=== PATIENT | male | born 1960 | race Caucasian/White ===

== ENCOUNTER 2016-09-03 18:10 | Inpatient (IN) | payer BC ==
[~2016-09-03] VITALS: Ht 172.7 cm; Wt 91.9 kg
[2016-09-08 15:18] VITALS: BP 130/80
[2016-09-08] MEDS ORDERED: LIPITOR40 MG GT (15:52)
[2016-09-08] MEDS ORDERED: CYANOCOBAL1000 MCG/2 IM (15:54)
[2016-09-08 23:57] VITALS: BP 140/84
[2016-09-09 04:57] VITALS: BP 132/72
[2016-09-09 07:42] LABS: HEMATOCRIT 37.7 % (38.0-50.0); MCHC 32.4 G/DL (30.0-36.0); MCV 86.7 FL (86-99); MEAN PLAT.VOLUME 12.4 uM^3 (9.0-12.4); PLATELET COUNT 136 K/uL (156-360); RBC DIS.WIDTH-CV 13.2 % (11.8-14.6); RBC DIS.WIDTH-SD 41.2 % (39-53); RED BLOOD COUNT 4.35 M/uL (4.00-5.50); WHITE BLOOD COUNT 11.9 K/uL (4.1-10.2)
[2016-09-09 08:03] LABS: ALKALINE PHOSPHATASE 46 IU/L (3-129); ANION GAP 8 MEQ/L (2-14); CHLORIDE 105 MEQ/L (99-109); GFR ESTIMATE (CALCULATED) > 59 mL/min/; GLUCOSE 112 mg/dL (70-99); POTASSIUM 3.6 MEQ/L (3.7-5.4); SAMPLE HEMOLYSIS CHECK 0; SAMPLE ICTERIC CHECK 0; SAMPLE LIPEMIA CHECK 0; SODIUM 142 MEQ/L (136-147); TOTAL BILIRUBIN 0.4 MG/DL (0.0-1.0); UREA NITROGEN (BUN) 19 mg/dL (9-23)
[2016-09-09 15:32] VITALS: BP 146/75
[2016-09-09 16:30] LABS: POINT-OF-CARE METER ID UU13113720
[2016-09-10 05:07] VITALS: BP 118/75
[2016-09-10 06:40] LABS: ANION GAP 9 MEQ/L (2-14); CHLORIDE 107 MEQ/L (99-109); GFR ESTIMATE (CALCULATED) > 59 mL/min/; GLUCOSE 123 mg/dL (70-99); SAMPLE HEMOLYSIS CHECK 0; SAMPLE ICTERIC CHECK 0; SAMPLE LIPEMIA CHECK 0; SODIUM 142 MEQ/L (136-147); UREA NITROGEN (BUN) 21 mg/dL (9-23)
[2016-09-10 07:06] LABS: MCH 28.4 PG (29.0-34.0); MCHC 32.2 G/DL (30.0-36.0); MCV 88.3 FL (86-99); MEAN PLAT.VOLUME 11.5 uM^3 (9.0-12.4); RBC DIS.WIDTH-CV 13.3 % (11.8-14.6); RBC DIS.WIDTH-SD 43.3 % (39-53); RED BLOOD COUNT 4.19 M/uL (4.00-5.50); WHITE BLOOD COUNT 8.3 K/uL (4.1-10.2)
[2016-09-10 07:10] LABS: PLATELET COUNT 250 K/uL (156-360)
[2016-09-10 15:26] VITALS: BP 129/76
[2016-09-10 16:16] LABS: POINT-OF-CARE METER ID UU13113712
[2016-09-11 05:07] VITALS: BP 126/73
[2016-09-11 08:00] LABS: POINT-OF-CARE METER ID UU13113712; POINT-OF-CARE USER ID AHSSSJB31
[2016-09-11 16:00] VITALS: BP 153/92
[2016-09-11 16:35] LABS: POINT-OF-CARE METER ID UU13113712
[2016-09-12 06:12] VITALS: BP 106/71
[2016-09-12 06:38] LABS: POINT-OF-CARE METER ID UU13113720; POINT-OF-CARE USER ID ENVGAF
[2016-09-12 15:30] VITALS: BP 128/79
[2016-09-12 16:24] LABS: POINT-OF-CARE METER ID UU13113712
[2016-09-13 05:37] VITALS: BP 105/59
[2016-09-13 06:28] LABS: POINT-OF-CARE METER ID UU13113712; POINT-OF-CARE USER ID ENVGAF
[2016-09-13 15:09] VITALS: BP 128/77
[2016-09-13 16:31] LABS: POINT-OF-CARE METER ID UU13113720
[2016-09-14 04:22] VITALS: BP 117/70
[2016-09-14 07:22] LABS: POINT-OF-CARE METER ID UU13113712; POINT-OF-CARE USER ID AHSSSJB31
[2016-09-14 16:07] VITALS: BP 109/69
[2016-09-14 16:48] LABS: POINT-OF-CARE METER ID UU13113712
[2016-09-15 04:15] VITALS: BP 132/80
[2016-09-15 05:48] LABS: HEMATOCRIT 40.9 % (38.0-50.0); MCH 29.1 PG (29.0-34.0); MCV 88.1 FL (86-99); MEAN PLAT.VOLUME 11.4 uM^3 (9.0-12.4); PLATELET COUNT 305 K/uL (156-360); RBC DIS.WIDTH-CV 13.3 % (11.8-14.6); RBC DIS.WIDTH-SD 42.8 % (39-53); RED BLOOD COUNT 4.64 M/uL (4.00-5.50); WHITE BLOOD COUNT 8.4 K/uL (4.1-10.2)
[2016-09-15 06:56] LABS: ALKALINE PHOSPHATASE 68 IU/L (3-129); ANION GAP 11 MEQ/L (2-14); CHLORIDE 104 MEQ/L (99-109); GFR ESTIMATE (CALCULATED) > 59 mL/min/; GLUCOSE 104 mg/dL (70-99); POTASSIUM 4.7 MEQ/L (3.7-5.4); SAMPLE HEMOLYSIS CHECK 0; SAMPLE ICTERIC CHECK 0; SAMPLE LIPEMIA CHECK 0; SODIUM 141 MEQ/L (136-147); TOTAL BILIRUBIN 0.4 MG/DL (0.0-1.0)
[2016-09-15 06:57] LABS: UREA NITROGEN (BUN) 32 mg/dL (9-23)
[2016-09-15 07:08] LABS: POINT-OF-CARE METER ID UU13113712; POINT-OF-CARE USER ID AHSSSJB31
[2016-09-15 15:18] VITALS: BP 123/78
[2016-09-15 17:09] LABS: POINT-OF-CARE METER ID UU13113712
[2016-09-15 21:45] LABS: POINT-OF-CARE METER ID UU13113712
[2016-09-16 06:37] LABS: POINT-OF-CARE METER ID UU13113720; POINT-OF-CARE USER ID ENVGAF
[2016-09-16 16:50] LABS: POINT-OF-CARE METER ID UU13113720
[2016-09-16 16:53] VITALS: BP 128/80
[2016-09-17 04:47] VITALS: BP 132/82
[2016-09-17 06:27] LABS: POINT-OF-CARE METER ID UU13113720; POINT-OF-CARE USER ID ENVGAF
[2016-09-17 15:23] VITALS: BP 123/75
[2016-09-17 15:26] VITALS: BP 123/75
[2016-09-17 15:46] LABS: POINT-OF-CARE METER ID UU13113720
[2016-09-18 05:36] VITALS: BP 114/76
[2016-09-18 06:48] LABS: POINT-OF-CARE METER ID UU13113720; POINT-OF-CARE USER ID AHSSSJB31
[2016-09-18 15:41] VITALS: BP 110/69
[2016-09-18 17:01] LABS: POINT-OF-CARE METER ID UU13113712
[2016-09-19 04:09] VITALS: BP 98/64
[2016-09-19 06:48] LABS: POINT-OF-CARE METER ID UU13113720; POINT-OF-CARE USER ID AHSSSJB31
[2016-09-19 16:23] VITALS: BP 128/91
[2016-09-19 16:47] LABS: POINT-OF-CARE METER ID UU13113712
[2016-09-20 05:37] VITALS: BP 120/79
[2016-09-20 07:57] LABS: POINT-OF-CARE METER ID UU13113720; POINT-OF-CARE USER ID AHSSSJB31
[2016-09-20 12:32] LABS: BASOPHIL COUNT 0.1 K/uL (0-0.1); EOSINOPHIL (%) 4.4 % (0-5); EOSINOPHIL COUNT 0.4 K/uL (0-0.3); HEMATOCRIT 44.3 % (38.0-50.0); IMMATURE GRANULOCYTE (%) 1.4 % (0.0-0.7); IMMATURE GRANULOCYTE COUNT 0.1 K/uL; INSTRUMENT ABS NEUTROPHIL CT 6.1 K/uL; LYMPHOCYTE COUNT 0.8 K/uL (1.0-2.8); MCH 28.2 PG (29.0-34.0); MCHC 32.1 G/DL (30.0-36.0); MCV 87.9 FL (86-99); MEAN PLAT.VOLUME 11.4 uM^3 (9.0-12.4); MONOCYTE (%) 6.7 % (3-12); MONOCYTE COUNT 0.5 K/uL (0-0.8); NEUTROPHIL (%) 77.3 % (45-76); NEUTROPHIL COUNT 6.1 K/uL (1.8-6.4); PLATELET COUNT 286 K/uL (156-360); RBC DIS.WIDTH-CV 13.2 % (11.8-14.6); RBC DIS.WIDTH-SD 43.2 % (39-53); RED BLOOD COUNT 5.04 M/uL (4.00-5.50); WHITE BLOOD COUNT 7.9 K/uL (4.1-10.2)
[2016-09-20 12:47] LABS: ALKALINE PHOSPHATASE 89 IU/L (3-129); ANION GAP 7 MEQ/L (2-14); CHLORIDE 104 MEQ/L (99-109); GFR ESTIMATE (CALCULATED) 56 mL/min/; GLUCOSE 107 mg/dL (70-99); POTASSIUM 5.1 MEQ/L (3.7-5.4); SAMPLE HEMOLYSIS CHECK 0; SAMPLE ICTERIC CHECK 0; SAMPLE LIPEMIA CHECK 0; SODIUM 141 MEQ/L (136-147); UREA NITROGEN (BUN) 26 mg/dL (9-23)
[2016-09-20 12:58] LABS: TOTAL BILIRUBIN 0.5 MG/DL (0.0-1.0)
[2016-09-20 15:37] VITALS: BP 125/83
[2016-09-20 16:20] LABS: POINT-OF-CARE METER ID UU13113712
[2016-09-20 20:28] LABS: POINT-OF-CARE METER ID UU13113712
[2016-09-21 05:16] VITALS: BP 127/83
[2016-09-21 06:37] LABS: POINT-OF-CARE METER ID UU13113712; POINT-OF-CARE USER ID ENVGAF
[2016-09-21 15:19] VITALS: BP 123/86
[2016-09-21 16:22] LABS: POINT-OF-CARE METER ID UU13113712; POINT-OF-CARE USER ID ENVGAF
[2016-09-22 05:29] VITALS: BP 129/74
[2016-09-22 06:36] LABS: POINT-OF-CARE METER ID UU13113720; POINT-OF-CARE USER ID ENVGAF
[2016-09-22 12:28] VITALS: BP 145/88
[2016-09-22 12:50] LABS: EOSINOPHIL (%) 3.6 % (0-5); EOSINOPHIL COUNT 0.4 K/uL (0-0.3); HEMATOCRIT 44.2 % (38.0-50.0); IMMATURE GRANULOCYTE (%) 0.6 % (0.0-0.7); IMMATURE GRANULOCYTE COUNT 0.1 K/uL; INSTRUMENT ABS NEUTROPHIL CT 8.6 K/uL; LYMPHOCYTE COUNT 0.8 K/uL (1.0-2.8); MCH 29.3 PG (29.0-34.0); MCV 88.8 FL (86-99); MEAN PLAT.VOLUME 11.3 uM^3 (9.0-12.4); MONOCYTE (%) 5.6 % (3-12); MONOCYTE COUNT 0.6 K/uL (0-0.8); NEUTROPHIL COUNT 8.6 K/uL (1.8-6.4); PLATELET COUNT 270 K/uL (156-360); RBC DIS.WIDTH-CV 13.3 % (11.8-14.6); RBC DIS.WIDTH-SD 43.1 % (39-53); RED BLOOD COUNT 4.98 M/uL (4.00-5.50); WHITE BLOOD COUNT 10.5 K/uL (4.1-10.2)
[2016-09-22 13:32] LABS: ALKALINE PHOSPHATASE 97 IU/L (3-129); ANION GAP 8 MEQ/L (2-14); CHLORIDE 106 MEQ/L (99-109); GFR ESTIMATE (CALCULATED) > 59 mL/min/; GLUCOSE 102 mg/dL (70-99); POTASSIUM 4.7 MEQ/L (3.7-5.4); SAMPLE HEMOLYSIS CHECK 0; SAMPLE ICTERIC CHECK 0; SAMPLE LIPEMIA CHECK 0; SODIUM 142 MEQ/L (136-147); TOTAL BILIRUBIN 0.5 MG/DL (0.0-1.0); UREA NITROGEN (BUN) 24 mg/dL (9-23)
[2016-09-22 15:40] VITALS: BP 165/102
[2016-09-22 16:13] LABS: POINT-OF-CARE METER ID UU13113720
[2016-09-22 21:46] LABS: POINT-OF-CARE METER ID UU13113720
[2016-09-23 05:20] VITALS: BP 138/75
[2016-09-23 07:28] LABS: POINT-OF-CARE METER ID UU13113720; POINT-OF-CARE USER ID AHSSSJB31
[2016-09-23 15:06] VITALS: BP 137/82
[2016-09-23 18:11] LABS: POINT-OF-CARE METER ID UU13113720
[2016-09-24 05:05] VITALS: BP 140/70
[2016-09-24 07:36] LABS: POINT-OF-CARE METER ID UU13113720
[2016-09-24 14:55] VITALS: BP 147/89
[2016-09-24 15:54] LABS: POINT-OF-CARE METER ID UU13113720
[2016-09-25 05:10] VITALS: BP 118/72
[2016-09-25 07:13] LABS: HEMATOCRIT 42.9 % (38.0-50.0); MCHC 31.9 G/DL (30.0-36.0); MCV 90.7 FL (86-99); MEAN PLAT.VOLUME 11.5 uM^3 (9.0-12.4); PLATELET COUNT 233 K/uL (156-360); RBC DIS.WIDTH-CV 13.3 % (11.8-14.6); RBC DIS.WIDTH-SD 44.7 % (39-53); RED BLOOD COUNT 4.73 M/uL (4.00-5.50); WHITE BLOOD COUNT 8.5 K/uL (4.1-10.2)
[2016-09-25 07:41] LABS: ALKALINE PHOSPHATASE 84 IU/L (3-129); ANION GAP 9 MEQ/L (2-14); CHLORIDE 105 MEQ/L (99-109); GFR ESTIMATE (CALCULATED) > 59 mL/min/; GLUCOSE 88 mg/dL (70-99); POTASSIUM 4.9 MEQ/L (3.7-5.4); SAMPLE HEMOLYSIS CHECK 1; SAMPLE ICTERIC CHECK 0; SAMPLE LIPEMIA CHECK 0; SODIUM 141 MEQ/L (136-147); TOTAL BILIRUBIN 0.5 MG/DL (0.0-1.0); UREA NITROGEN (BUN) 19 mg/dL (9-23)
[2016-09-25 07:51] LABS: POINT-OF-CARE METER ID UU13113720
[2016-09-25 15:53] VITALS: BP 141/78
[2016-09-25 16:56] LABS: POINT-OF-CARE METER ID UU13113720
[2016-09-26 06:05] VITALS: BP 127/77
[2016-09-26 06:45] LABS: POINT-OF-CARE METER ID UU13113712; POINT-OF-CARE USER ID ENVGAF
[2016-09-26 07:47] VITALS: BP 116/78
[2016-09-26 14:58] VITALS: BP 117/76
[2016-09-26 16:03] LABS: POINT-OF-CARE METER ID UU13113712
[2016-09-27 06:05] VITALS: BP 131/82
[2016-09-27 06:41] LABS: HEMATOCRIT 41.8 % (38.0-50.0); MCH 28.3 PG (29.0-34.0); MCHC 32.1 G/DL (30.0-36.0); MCV 88.4 FL (86-99); MEAN PLAT.VOLUME 11.9 uM^3 (9.0-12.4); PLATELET COUNT 200 K/uL (156-360); RBC DIS.WIDTH-CV 13.5 % (11.8-14.6); RBC DIS.WIDTH-SD 43.9 % (39-53); RED BLOOD COUNT 4.73 M/uL (4.00-5.50); WHITE BLOOD COUNT 17.5 K/uL (4.1-10.2)
[2016-09-27 06:52] LABS: POINT-OF-CARE METER ID UU13113712; POINT-OF-CARE USER ID ENVGAF
[2016-09-27 07:15] LABS: ALKALINE PHOSPHATASE 83 IU/L (3-129); ANION GAP 9 MEQ/L (2-14); CHLORIDE 102 MEQ/L (99-109); GFR ESTIMATE (CALCULATED) > 59 mL/min/; GLUCOSE 121 mg/dL (70-99); POTASSIUM 4.5 MEQ/L (3.7-5.4); SAMPLE HEMOLYSIS CHECK 0; SAMPLE ICTERIC CHECK 0; SAMPLE LIPEMIA CHECK 0; SODIUM 140 MEQ/L (136-147); UREA NITROGEN (BUN) 20 mg/dL (9-23)
[2016-09-27 07:33] LABS: TOTAL BILIRUBIN 0.7 MG/DL (0.0-1.0)
[2016-09-27 15:19] VITALS: BP 110/70
[2016-09-27 16:32] LABS: POINT-OF-CARE METER ID UU13113720
[2016-09-28 04:49] VITALS: BP 132/88
[2016-09-28 07:21] LABS: POINT-OF-CARE METER ID UU13113720
[2016-09-28 10:16] LABS: HEMATOCRIT 40.1 % (38.0-50.0); MCH 28.8 PG (29.0-34.0); MCHC 32.7 G/DL (30.0-36.0); MCV 88.1 FL (86-99); MEAN PLAT.VOLUME 11.6 uM^3 (9.0-12.4); PLATELET COUNT 180 K/uL (156-360); RBC DIS.WIDTH-CV 13.7 % (11.8-14.6); RBC DIS.WIDTH-SD 44.5 % (39-53); RED BLOOD COUNT 4.55 M/uL (4.00-5.50)
[2016-09-28 15:38] VITALS: BP 118/81
[2016-09-28 16:47] LABS: POINT-OF-CARE METER ID UU13113720
[2016-09-29 04:10] VITALS: BP 121/78
[2016-09-29 07:00] LABS: POINT-OF-CARE METER ID UU13113720
[2016-09-29 15:38] VITALS: BP 115/77
[2016-09-29 16:25] LABS: POINT-OF-CARE METER ID UU13113712
[2016-09-30 05:40] VITALS: BP 104/68
[2016-09-30 06:52] LABS: POINT-OF-CARE METER ID UU13113712; POINT-OF-CARE USER ID ENVGAF
[2016-09-30 15:42] VITALS: BP 113/80
[2016-09-30 16:52] LABS: POINT-OF-CARE METER ID UU13113720
[2016-10-01 03:00] VITALS: BP 138/84
[2016-10-01 03:30] LABS: POINT-OF-CARE METER ID UU13113720
[2016-10-01 04:24] VITALS: BP 119/75
[2016-10-01 06:36] LABS: POINT-OF-CARE METER ID UU13113712; POINT-OF-CARE USER ID ENVGAF
[2016-10-01 15:00] VITALS: BP 124/86
[2016-10-01 16:26] LABS: POINT-OF-CARE METER ID UU13113712
[2016-10-02 05:02] VITALS: BP 136/87
[2016-10-02 06:55] LABS: POINT-OF-CARE METER ID UU13113720; POINT-OF-CARE USER ID ENVGAF
[2016-10-02 16:53] VITALS: BP 155/93
[2016-10-02 17:11] LABS: POINT-OF-CARE METER ID UU13113720
[2016-10-03 05:37] VITALS: BP 135/80
[2016-10-03 07:22] LABS: POINT-OF-CARE METER ID UU14174215
[2016-10-03 15:30] VITALS: BP 116/77
[2016-10-03 16:46] LABS: POINT-OF-CARE METER ID UU13113720
[2016-10-03 23:28] LABS: INTER. NORMALIZED RATIO 1.1; PROTHROMBIN TIME 12.4 SEC (10.2-12.9)
[2016-10-03 23:31] LABS: PTT 30.4 SEC (25-37)
[2016-10-03 23:33] LABS: CHLORIDE 103 mEq/L (99-109); POTASSIUM 4.5 mEq/L (3.7-5.4); SODIUM 139 mEq/L (136-147)
[2016-10-03 23:34] LABS: HEMATOCRIT 41.4 % (38.0-50.0); HEMATOLOGY COMMENT 1 SMEAR COMPATIBLE; MCH 28.3 PG (29.0-34.0); MCHC 32.4 G/DL (30.0-36.0); MCV 87.5 FL (86-99); MEAN PLAT.VOLUME 11.3 uM^3 (9.0-12.4); PLATELET COUNT 251 K/uL (156-360); RBC DIS.WIDTH-CV 13.2 % (11.8-14.6); RBC DIS.WIDTH-SD 42.4 % (39-53); RED BLOOD COUNT 4.73 M/uL (4.00-5.50); WHITE BLOOD COUNT 10.7 K/uL (4.1-10.2)
[2016-10-03 23:35] LABS: GLUCOSE 78 mg/dL (70-99)
[2016-10-03 23:37] LABS: ANION GAP 10 MEQ/L (2-14); TOTAL BILIRUBIN 0.5 mg/dL (0.0-1.0)
[2016-10-03 23:39] LABS: ALKALINE PHOSPHATASE 116 IU/L (3-129); GFR ESTIMATE (CALCULATED) > 59 mL/min/
[2016-10-03 23:40] LABS: UREA NITROGEN (BUN) 20 mg/dL (9-23)
[2016-10-03 23:41] LABS: DIRECT BILIRUBIN 0.3 mg/dL (0.0-0.3)
[2016-10-04 00:50] VITALS: BP 128/85
[2016-10-04 06:22] VITALS: BP 135/76
[2016-10-04 07:01] LABS: POINT-OF-CARE METER ID UU14174215
[2016-10-04 10:03] LABS: ADD MIUA? YES; BILIRUBIN NEGATIVE; BLOOD NEGATIVE; COLOR YELLOW ((YELLOW)); GLUCOSE (STRIP) NEGATIVE; KETONES NEGATIVE; LEUKOCYTES LARGE; NITRITE NEGATIVE; PROTEIN (STRIP) NEGATIVE; SPECIFIC GRAVITY 1.025 (1.000-1.030); UROBILINOGEN 0.2 MG/DL (0.2-1.0)
[2016-10-04 10:06] LABS: BACTERIA 1+ /HPF; EPITHELIAL CELLS RARE /HPF; MUCUS TRACE /LPF; RED BLOOD CELLS 0-5 /HPF (0-5); UCUL ADDED? YES; WHITE BLOOD CELLS 30-40 /HPF (0-5)
[2016-10-04 15:08] LABS: HEMATOCRIT 39.6 % (38.0-50.0); MCH 28.2 PG (29.0-34.0); MCHC 32.1 G/DL (30.0-36.0); PLATELET COUNT 244 K/uL (156-360); RBC DIS.WIDTH-CV 13.1 % (11.8-14.6); RBC DIS.WIDTH-SD 42.2 % (39-53); WHITE BLOOD COUNT 8.3 K/uL (4.1-10.2)
[2016-10-04 15:30] LABS: ALKALINE PHOSPHATASE 103 IU/L (3-129); AMYLASE 64 IU/L (1-118); ANION GAP 8 MEQ/L (2-14); CHLORIDE 104 MEQ/L (99-109); GFR ESTIMATE (CALCULATED) > 59 mL/min/; LIPASE 29 U/L (1.0-51.0); POTASSIUM 4.4 MEQ/L (3.7-5.4); SAMPLE HEMOLYSIS CHECK 0; SAMPLE ICTERIC CHECK 0; SAMPLE LIPEMIA CHECK 0; SODIUM 138 MEQ/L (136-147); TOTAL BILIRUBIN 0.7 MG/DL (0.0-1.0); UREA NITROGEN (BUN) 17 mg/dL (9-23)
[2016-10-04 15:31] LABS: GLUCOSE 105 mg/dL (70-99)
[2016-10-04 15:39] VITALS: BP 135/65
[2016-10-04 16:37] LABS: POINT-OF-CARE METER ID UU13113720
[2016-10-05 05:06] VITALS: BP 117/76
[2016-10-05 06:54] LABS: POINT-OF-CARE METER ID UU13113720; POINT-OF-CARE USER ID ENVGAF
[2016-10-05 15:56] VITALS: BP 134/87
[2016-10-05 16:32] LABS: POINT-OF-CARE METER ID UU14174215
[2016-10-06 04:51] VITALS: BP 113/69
[2016-10-06 06:51] LABS: POINT-OF-CARE METER ID UU13113720; POINT-OF-CARE USER ID ENVGAF
[2016-10-06 15:55] VITALS: BP 133/84
[2016-10-06 16:39] LABS: POINT-OF-CARE METER ID UU13113720
[2016-10-07 05:45] VITALS: BP 132/75
[2016-10-07 07:26] LABS: POINT-OF-CARE METER ID UU13113720; POINT-OF-CARE USER ID AHSSSJB31
[2016-10-07 10:02] LABS: HEMATOCRIT 35.3 % (38.0-50.0); MCH 29.4 PG (29.0-34.0); MCHC 32.9 G/DL (30.0-36.0); MCV 89.4 FL (86-99); MEAN PLAT.VOLUME 10.8 uM^3 (9.0-12.4); PLATELET COUNT 209 K/uL (156-360); RBC DIS.WIDTH-CV 13.3 % (11.8-14.6); RBC DIS.WIDTH-SD 43.5 % (39-53); RED BLOOD COUNT 3.95 M/uL (4.00-5.50); WHITE BLOOD COUNT 9.5 K/uL (4.1-10.2)
[2016-10-07 10:24] LABS: ALKALINE PHOSPHATASE 81 IU/L (3-129); ANION GAP 7 MEQ/L (2-14); CHLORIDE 108 MEQ/L (99-109); GFR ESTIMATE (CALCULATED) > 59 mL/min/; GLUCOSE 143 mg/dL (70-99); SAMPLE HEMOLYSIS CHECK 0; SAMPLE ICTERIC CHECK 0; SAMPLE LIPEMIA CHECK 0; SODIUM 142 MEQ/L (136-147); TOTAL BILIRUBIN 0.3 MG/DL (0.0-1.0); UREA NITROGEN (BUN) 15 mg/dL (9-23)
[2016-10-07 15:15] VITALS: BP 149/86
[2016-10-07 16:32] LABS: POINT-OF-CARE METER ID UU14174215
[2016-10-08 05:32] VITALS: BP 138/76
[2016-10-08 07:16] LABS: POINT-OF-CARE METER ID UU13113720; POINT-OF-CARE USER ID AHSSSJB31
[2016-10-08 16:03] VITALS: BP 122/71
[2016-10-08 16:34] LABS: POINT-OF-CARE METER ID UU14174215
[2016-10-09 05:02] VITALS: BP 116/78
[2016-10-09 07:00] LABS: POINT-OF-CARE METER ID UU13113720; POINT-OF-CARE USER ID ENVGAF
[2016-10-09 15:22] VITALS: BP 145/90
[2016-10-09 16:43] LABS: POINT-OF-CARE METER ID UU14174215
[2016-10-10 06:12] VITALS: BP 115/76
[2016-10-10 07:11] LABS: POINT-OF-CARE METER ID UU13113720; POINT-OF-CARE USER ID AHSSSJB31
[2016-10-10 15:36] VITALS: BP 130/77
[2016-10-10 16:37] LABS: POINT-OF-CARE METER ID UU13113720
[2016-10-11 05:04] VITALS: BP 116/70
[2016-10-11 06:47] LABS: POINT-OF-CARE METER ID UU14174215; POINT-OF-CARE USER ID ENVGAF
[2016-10-11 15:28] VITALS: BP 123/83
[2016-10-11 16:22] LABS: POINT-OF-CARE METER ID UU14174215
[2016-10-11 20:59] LABS: MCH 29.5 PG (29.0-34.0); MCHC 32.6 G/DL (30.0-36.0); MCV 90.5 FL (86-99); MEAN PLAT.VOLUME 10.8 uM^3 (9.0-12.4); PLATELET COUNT 262 K/uL (156-360); RBC DIS.WIDTH-CV 13.7 % (11.8-14.6); RBC DIS.WIDTH-SD 45.2 % (39-53); WHITE BLOOD COUNT 7.4 K/uL (4.1-10.2)
[2016-10-11 21:23] LABS: ALKALINE PHOSPHATASE 76 IU/L (3-129); ANION GAP 6 MEQ/L (2-14); CHLORIDE 104 MEQ/L (99-109); GFR ESTIMATE (CALCULATED) 51 mL/min/; GLUCOSE 100 mg/dL (70-99); POTASSIUM 4.4 MEQ/L (3.7-5.4); SAMPLE HEMOLYSIS CHECK 0; SAMPLE ICTERIC CHECK 0; SAMPLE LIPEMIA CHECK 0; SODIUM 139 MEQ/L (136-147); TOTAL BILIRUBIN 0.3 MG/DL (0.0-1.0); UREA NITROGEN (BUN) 22 mg/dL (9-23)
[2016-10-12] MEDS ORDERED: Tylenol GT (00:55)
[2016-10-12] MEDS ORDERED: BACTRIM,SEPTRA S1 ML GT (00:55)
[2016-10-12] MEDS ORDERED: LOPERAMIDE1 MG/5 ML GT (00:55)
[2016-10-12] MEDS ORDERED: ASPIRIN81 M2 GT (00:55)
[2016-10-12] MEDS ORDERED: PHENERGAN1.25 MG/ML GT (00:55)
[2016-10-12] MEDS ORDERED: FLORASTOR250 MG GT (00:55)
[2016-10-12 04:08] VITALS: BP 121/74
[2016-10-12 07:27] LABS: POINT-OF-CARE METER ID UU14174215
== END 2016-10-12 14:24 | DRG 392 ==
LOC: 3WEST 18:10
PROVIDERS: Family Medicine; Hospitalist; Physical Medicine & Rehabilitation; Physical Medicine & Rehabilitation Pain Medicine; Psychiatry & Neurology Neurology
PROC: F07M7ZZ Manual Therapy Techniques Treatment of Musculoskeletal System - Whole Body (ICD-10-PCS; principal; 2016-09-08)
PROC: 0D2DXUZ Change Feeding Device in Lower Intestinal Tract, External Approach (ICD-10-PCS; 2016-10-02)
DX: R13.10 Dysphagia, unspecified (principal); K94.23 Gastrostomy malfunction; I69.351 Hemiplegia and hemiparesis following cerebral infarction affecting right dominant side; K94.22 Gastrostomy infection; R47.01 Aphasia; N39.0 Urinary tract infection, site not specified; L03.311 Cellulitis of abdominal wall; R29.810 Facial weakness; I10 Essential (primary) hypertension; Y83.3 Surgical operation with formation of external stoma as the cause of abnormal reaction of the patient, or of later complication, without mention of misadventure at the time of the procedure; M21.371 Foot drop, right foot; E53.8 Deficiency of other specified B group vitamins; E78.5 Hyperlipidemia, unspecified; N28.1 Cyst of kidney, acquired; Z68.30 Body mass index [BMI] 30.0-30.9, adult; K57.30 Diverticulosis of large intestine without perforation or abscess without bleeding; K52.1 Toxic gastroenteritis and colitis; J98.11 Atelectasis; B96.20 Unspecified Escherichia coli [E. coli] as the cause of diseases classified elsewhere; R79.1 Abnormal coagulation profile; T36.0X5A Adverse effect of penicillins, initial encounter; T36.95XA Adverse effect of unspecified systemic antibiotic, initial encounter; Z80.51 Family history of malignant neoplasm of kidney
CPT/HCPCS: 70551; 71010; 71020; 71275; 74000; 74230; 76000; 76705; 78227; 80048; 80053; 81003; 82150; 82248; 82948; 83605; 83690; 85025; 85027; 85379; 85610; 85730; 87040; 87077; 87086; 87186; 87493; 92507 GN; 92523 GN; 92526 GN; 92610 GN; 92611 GN; 93971; 94799; 97110 GO; 97112 GO; 97112 GP; 97530 GP; A9537; C1769; G0283 GO; J1170; J2543; J2805; J3010; J3420; J7030; J7050